=== PATIENT | male | born 1975 | race Caucasian/White ===

== ENCOUNTER 2017-02-09 06:06 | Observation (INO) | payer OTHER ==
[~2017-02-09] VITALS: Ht 190.5 cm; Wt 87.4 kg
--- NOTE | ~2017-02-09 | OR ---
PATIENT'S NAME: PAMELA SPICER [facility] AGE: 41 Y [address] ROOM: [place] [address] LOCATION: [facility] ADMIT DATE: 02/09/2017 OR/Procedure Report DISCHARGE DATE: FAMILY PHYSICIAN: Luis Alfredo Vasquez MD ATTENDING PHYSICIAN: JUANIS BECERRA SURGEON: Juanis Becerra MD T[employer] SAL[employer] PERSON: Judd Mccabe PA-C DATE OF PROCEDURE: 02/09/2017 PREOPERATIVE DIAGNOSES: 1. Left venous stasis disease, lower limb. 2. Left septic retrocalcaneal bursitis. 3. Achilles tendinosis. 4. Flexor hallucis longus tendinosis. POSTOPERATIVE DIAGNOSES: 1. Left venous stasis disease, lower limb. 2. Left septic retrocalcaneal bursitis. 3. Achilles tendinosis. 4. Flexor hallucis longus tendinosis. PROCEDURES PERFORMED: 1. Left Achilles debridement. 2. Posterior compartment release of the leg. 3. Irrigation and excisional debridement of septic retrocalcaneal bursa. 4. Debridement of flexor hallucis longus tendon. ANESTHESIA: General endotracheal anesthesia with peripheral nerve block. FLUIDS: See Anesthesia report. ESTIMATED BLOOD LOSS: Minimal. TOURNIQUET: Left proximal thigh to 250 mmHg. SPECIMENS: Left Achilles wound and retrocalcaneal bursa specimen and cultures. COMPLICATIONS: None. DISPOSITION: Stable, in PACU. COUNTS: All counts were correct. INDICATIONS: Mr. Spicer is a pleasant, 41-year-old gentleman who underwent PATIENT'S NAME: PAMELA SPICER [facility] AGE: 41 Y [address] ROOM: [place] [address] LOCATION: [facility] ADMIT DATE: 02/09/2017 OR/Procedure Report DISCHARGE DATE: FAMILY PHYSICIAN: Luis Alfredo Vasquez MD ATTENDING PHYSICIAN: JUANIS BECERRA the noted procedures above. The risks, benefits, and alternatives to pursuing surgical intervention were discussed in detail. The patient elected to proceed with surgery. Anesthesia was consulted for their perioperative evaluation of the patient. I marked the left lower extremity, indicating the correct surgical site. DESCRIPTION OF PROCEDURE: The patient was taken from the holding area to the operating room. A time-out was performed. General endotracheal anesthesia was administered. A nerve block had been previously placed by the anesthesia team. Ancef antibiotic was administered for perioperative prophylaxis. The patient has already been on Bactrim antibiotic for cellulitis. The left lower extremity was then prepped and draped in the sterile fashion. An Esmarch was used to exsanguinate the limb, and the tourniquet was inflated to 250 mmHg. The patient was in the prone position. I made an incision just medial to the midline posteriorly through skin and subcutaneous tissue. I made the incision and dissected longitudinally through the midsubstance of the Achilles tendon. There was inflammation noted and tendinosis. Once I exposed the bursa, I took a specimen and cultures of the murky-appearing fluid. I used a 15 blade knife to debride the Achilles tendon. I used a rongeur to excise the retrocalcaneal bursa. After the bursa was excised, I identified the flexor hallucis longus tendon that appeared to be scarred down in the posterior compartment with surrounding tenosynovitis. The release of the posterior compartment was necessary to gain access to the flexor hallucis longus tendon and to relieve AI joint effusion that appeared to involve the subtalar joint. 3 L of normal sterile saline solution via pulsatile lavage was used to irrigate the wound. In light of fact that I suspected infection, I used an 0 Prolene suture in a running stitch fashion to repair the Achilles end to end. A 2-0 nylon suture was used to approximate the subcutaneous tissue and paratenon, and 2-0 nylon suture in an interrupted horizontal mattress fashion was used to approximate the skin. The tourniquet was then let down. Sterile dressings were placed in the form of Xeroform, followed by 4x4, and Webril. The patient was then placed into a well-padded short-leg splint with the ankle in neutral dorsiflexion. The patient was then transferred from the operating room table in the prone position to supine position and subsequently extubated. He was brought to the recovery room in stable condition. There were no intraoperative complications noted. Of note, my PA, Judd Mccabe PA-C, played an integral role in the intraoperative care of this patient. This included preoperative positioning, PATIENT'S NAME: APMELA SPICER [facility] AGE: 41 Y [address] ROOM: [address] [address] LOCATION: [facility] ADMIT DATE: 02/09/2017 OR/Procedure Report DISCHARGE DATE: FAMILY PHYSICIAN: Luis Alfredo Vasquez MD ATTENDING PHYSICIAN: JUANIS BECERRA intraoperative expert retraction, and closing and splinting functions. IMPRESSION: The patient is status post the noted procedures above. PLAN: The patient will be nonweightbearing on the left lower extremity. He will be admitted for observation pending wound cultures. We will start vancomycin antibiotic and treat him for septic bursitis. Since the patient has already been on oral antibiotics even prior to my initial contact with him, it is probable that no organism will be identified. We will be treating him effectively empirically. He will be nonweightbearing on the left lower extremity in a splint. Pain control will be in the form of Percocet and IV morphine as needed for pain. Aspirin will be prescribed for DVT prophylaxis. I will continue to monitor the patient closely postoperatively. MD AMAN RANDOLPH/modl /[id number] d: 02/09/17 1243 t: 02/09/17 1614, OPERATIVE SUMMARY
--- NOTE | ~2017-02-09 | DS ---
PATIENT'S NAME: PAMELA SPICER [facility] AGE: 41 Y [address] ROOM: [address] [place], [place] [address] LOCATION: [facility] ADMIT DATE: 02/09/2017 Discharge Summary DISCHARGE DATE: 02/11/2017 FAMILY PHYSICIAN: Luis Alfredo Vasquez MD ATTENDING PHYSICIAN: Shamir Covington ADMITTING DIAGNOSES: 1. Left venous stasis disease, lower limb. 2. Left septic retrocalcaneal bursitis. 3. Achilles tendinosis. 4. Flexor hallucis longus tendinosis. DISCHARGE DIAGNOSES: 1. Left venous stasis disease, lower limb. 2. Left septic retrocalcaneal bursitis. 3. Achilles tendinosis. 4. Flexor hallucis longus tendinosis. CONSULTATION: Consultation to the Hospitalist Service for medical management. PROCEDURES: The patient underwent the following procedure on February 09, [address] Covington: 1. Left Achilles debridement. 2. Posterior compartment release of the legs. 3. Irrigation and debridement of septic retrocalcaneal bursa. 4. Debridement of flexor hallucis longus tendon. HISTORY OF PRESENT ILLNESS: The patient is a 41-year-old male patient who was seen in the office for lower venous stasis disease and wounds. The patient was felt to possibly have a left septic retrocalcaneal bursitis. The patient was scheduled for surgery on February 09, 2017 after being seen by Dr. Covington in the office. HOSPITAL COURSE: The patient was admitted on February 09, 2017 for the above described procedure. He did tolerate the procedure well. The patient during his admission was kept under adequate pain control. The patient was on Bactrim prior to his admission for his left leg wound. He was nonweightbearing during this time. During his admission, the Bactrim was held, awaiting cultures, the patient was kept on IV Ancef postoperative for 3 doses. He was also placed on vancomycin IV during his admission at that time. The patient was kept awaiting wound cultures and sensitivities. The patient was found to have Staph aureus that was pansensitive. The patient was put back on his Bactrim since the Staph aureus was susceptible to the Bactrim at discharge. During the admission, the patient's creatinine was 1.4, but it was down to 1.2 at discharge. The patient was felt to be stable to discharge home PATIENT'S NAME: PAMELA SPICER [facility] AGE: 41 Y [address] ROOM: [address] [place], [place] [address] LOCATION: G3 ADMIT DATE: 02/09/2017 Discharge Summary DISCHARGE DATE: 02/11/2017 FAMILY PHYSICIAN: Luis Alfredo Vasquez MD ATTENDING PHYSICIAN: Shamir Covington on February 11, 2017. DISCHARGE INSTRUCTIONS: The patient is to be nonweightbearing of his left lower extremity. He is to avoid nonsteroidal antiinflammatories over-the- counter such as ibuprofen or naproxen. He was instructed to eat yogurt daily. He is to keep the splint clean, dry, and intact, but he may cover to take a shower. The patient has no restrictions on his diet. He is to follow up with Dr. Covington on TuesdayFebruary 15 at 9 o'clock. He is also to followup with Dr. Vasquez to have a basic metabolic panel drawn 3 days after followup. Discharge status was good. DISCHARGE MEDICATIONS: New medications: The patient is to take Percocet 5/325 mg one tab every 6 hours as needed for pain, polyethylene glycol 17 g every 24 hours as needed for constipation, Florastor 250 mg p.o. b.i.d. to take for 10 days then stop. The patient again was instructed to resume his Bactrim. He was also placed on aspirin 325 mg p.o. b.i.d. for DVT prophylaxis, Colace 100 mg p.o. b.i.d. as needed for constipation. The patient was also discharged on acetaminophen 500 mg 2 tabs t.i.d. as needed for pain. DISCHARGE STATUS: Good. SONIA LUIS PA-C FOR MD LEON RANDOLPH/katherine /[id number] d: 02/22/17613 t: 02/28/17 1014, DISCHARGE SUMMARY
[~2017-02-09 06:06] MED LIST: BACTRIM DS1 TAB PO; TYLENOL EXTRA500 MG PO
[2017-02-09 10:26] LABS: CREATININE 1.4 mg/dL (0.6-1.3)
--- NOTE | 2017-02-09 13:15 | NUR ---
Introduced self/role to patient and his Rachel, they live in [facility]. At this time unsure if there would be any needs. Depends on how the cultures come back. Wrote my name on his marker board, will continue to follow.
--- NOTE | 2017-02-09 17:00 | NUR ---
Pt here from PACU at 1000. He had general anesthetic along with a popliteal block and adductor canal block left leg. Pt has no pain, denies any sensation below knee. Left leg elevated. Splint and grecia wrap dry and intact. Able to feel faint pedal pulse under dressing. Toes warm, ivan well. Pt voided x2. VS will be routine for you. Weaned off O2. Pt has eaten well. Up in chair this afternoon with NWB left and crutches. Pt uses IS Hrly. PACU nurse reported blocks should last 12-18 hrs. No pain meds given since return. here and plans to spend the night. Pt has elevated BUN and creatinine. recheck renal in AM. Possible discharge tomorrow
--- NOTE | 2017-02-10 04:50 | NUR ---
Significant Event: A/O X 3. STAYED THE [facility] ASSISTED IN CARES. SAT UP IN RECLINER CHAIR, LEGS ELEVATED. CAN WIGGLE TOES, LEFT LEG NUMBNESS-TINGLING BELOW LEFT KNEE. ICE BAG TO ANKLE AREA. MOVES WITH DIFFICULTY. HAD SOMA 350MG AT 0436 A 3 RATE. HAD PERCOCET TAB ONE X 2 LAST AT 0329 PAIN RATE 3. INCENTIVE SPIROMETER USAGE 3000. TAKES FLUIDS, NO NAUSEA. CAN FEEL PULSE LIGHTLY UNDER CAST-ACEWRAP PADDING. TOES WARM, BLANCHING PRESENT. PAIN AT LEFT ANKLE AND POSTERIOR LEFT THIGH ABOVE LEFT KNEE AREA. LEFT LEG ELEVATED. VOIDS GOOD AMOUNTS. PATIENT IS NON-WT BEARING LEFT LEG, USES CRUTCHES, ONE ASSIST. GAIT SLIGHT UNSTEADY. Follow up:
[2017-02-10 05:42] LABS: BASOPHIL % 0.2 %; EOSINOPHIL # 0.1 K/uL (0.0-0.5); EOSINOPHIL % 0.6 %; HEMATOCRIT 38.1 % (37.0-53.0); HEMOGLOBIN 12.9 g/dL (12.0-17.0); IMMATURE GRANULOCYTE % 0.2 %; LYMPHOCYTE # 1.8 K/uL (0.8-4.0); LYMPHOCYTE % 17.5 %; MCH 29.8 pg (27.0-34.0); MCHC 33.9 gm/dL (32.0-36.5); MONOCYTE # 0.5 K/uL (0.0-1.0); MONOCYTE % 5.4 %; MPV 8.6 fl (9.4-12.4); NEUTROPHIL # (ANC) 7.6 K/uL (1.4-9.0); NEUTROPHIL % 76.1 %; NRBC % 0 /100WBC (0-0.00); PLATELET COUNT 243 K/uL (150-450); RBC 4.33 M/uL (4.00-6.00); RDW-CV 12.2 % (11.9-14.6)
[2017-02-10 06:06] LABS: ALBUMIN 3.4 gm/dL (3.5-5.0); ANION GAP 10.9 (10.0-19.0); BLOOD UREA NITROGEN 15 mg/dL (6-24); CALCIUM 8.1 mg/dL (8.5-10.5); CHLORIDE 109 mMol/L (96-110); CO2 25 mMol/L (22-32); CREATININE 1.2 mg/dL (0.6-1.3); ESTIMATED GFR (MDRD EQUATION) > 60; POTASSIUM 3.9 mMol/L (3.7-5.1); SODIUM 141 mMol/L (135-145)
--- NOTE | 2017-02-10 07:56 | NUR ---
[id number] Supervised [facility] Marble Chip [employer] Worker.
--- NOTE | 2017-02-10 17:01 | NUR ---
Significant Event: Percocet one tab x4 last at 1531. Splint/cast grecia wrap dry and intact to lt lower leg. Tingling to toes. Able to wiggle toes. Up in recliner. Ambulates with crutches, one assist. at bedside Follow up:
--- NOTE | 2017-02-11 04:00 | NUR ---
Patient alert and oriented x3, very pleasant and cooperative, transfers well using the crutches, in room helps with most cares, dressing clean dry and intact to left foot, c/o numbness to toes, taking percocet for pain control, had IV vanco at 0000, has rested well
[2017-02-11 06:07] LABS: ANION GAP 10.2 (10.0-19.0); BLOOD UREA NITROGEN 13 mg/dL (6-24); CALCIUM 8.3 mg/dL (8.5-10.5); CHLORIDE 108 mMol/L (96-110); CO2 29 mMol/L (22-32); CREATININE 1.2 mg/dL (0.6-1.3); ESTIMATED GFR (MDRD EQUATION) > 60; POTASSIUM 4.2 mMol/L (3.7-5.1); SODIUM 143 mMol/L (135-145)
--- NOTE | 2017-02-11 11:00 | NUR ---
Spoke to Ilana Campos, patient can go home on PO abx. Nothing will be needed from care management then.
[2017-02-11] MEDS ORDERED: ECOTRIN325 MG PO (13:21)
[2017-02-11] MEDS ORDERED: COLACE100 MG PO (13:22)
[2017-02-11] MEDS ORDERED: FLORASTOR250 MG PO (13:23)
[2017-02-11] MEDS ORDERED: MIRALAX17 GM PO (13:26)
[2017-02-11] MEDS ORDERED: PERCOCET 5-3251 EACH PO (13:27)
--- NOTE | 2017-02-11 14:04 | NUR ---
Significant Event: Patient dismissed to home with spouse assistance. Taking analgesic prn for pain with relief. Ambulates with crutched, non-wt bearing lt leg, standby assist. Dressing dry and intact to lt lower leg. CSM WNL to lt toes. Patient and spouse voice understanding of dismissal instructions. Dismissed with dismissal instructions, RX and belongings. Follow up:
== END 2017-02-11 14:00 | disposition disaster alternative care site (69) ==
LOC: G3N 06:06 → GSDC 06:06 → G3N 06:07 → GSDC 09:46 → G3N 02-11 14:00
PROVIDERS: Nurse Practitioner Family; Physician Assistant Medical; ADMIT Orthopaedic Surgery Adult Reconstructive Orthopaedic Surgery
PROC: 0JDR0ZZ Extraction of Left Foot Subcutaneous Tissue and Fascia, Open Approach (ICD-10-PCS; principal; 2017-02-09)
PROC: 0KNT0ZZ Release Left Lower Leg Muscle, Open Approach (ICD-10-PCS; 2017-02-09)
PROC: 0MBT0ZZ Excision of Left Foot Bursa and Ligament, Open Approach (ICD-10-PCS; 2017-02-09)
DX: I87.2 Venous insufficiency (chronic) (peripheral) (principal); M71.1 Other infective bursitis; M76.62 Achilles tendinitis, left leg; M77.52 Other enthesopathy of left foot and ankle; Z87.891 Personal history of nicotine dependence; Z88.8 Allergy status to other drugs, medicaments and biological substances
CPT/HCPCS: G0378; J0690; J2001; J2250; J2270; J3370; J3480; J7050; J7120